=== PATIENT | male | born 1995 | race African-American/Black ===

== ENCOUNTER 2018-12-14 22:33 | Emergency (ER) | payer SELFPAY ==
[~2018-12-14] VITALS: Ht 177.8 cm; Wt 90.7 kg
--- NOTE | 2018-12-14 22:38 | ED.ADGEN ---
Adult General Chief Complaint Chief Complaint "... I was playing foot ball last .. and another player came down hard on this lt ankle and foot.. It still swollen and painful.. it stanley like crazy..like if I ve been sleeping.. and get up out bed... 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 Left foot and ankle is obviously swollen. It is ecchymotic. Pain is localized more on the lateral malleolus and mid foot. Distal neurovascular intact. No upper leg tenderness. Patient denies other injury. Patient denies any health history of any significance. Patient recently from [place] where he went to [place] at [facility]. Patient is here on football scholarship with [employer] Review of Systems Review of Systems Constitutional: Denies fever or chills [] Eyes: Denies change in visual acuity, redness, or eye pain [] HENT: Denies nasal congestion or sore throat [] Respiratory: Denies cough or shortness of breath [] Cardiovascular: No additional information not addressed in HPI [] GI: Denies abdominal pain, nausea, vomiting, bloody stools or diarrhea [] : Denies dysuria or hematuria [] Musculoskeletal: Complains of left foot and ankle pain and edema Integument: Denies rash or skin lesions [] Neurologic: Denies headache, focal weakness or sensory changes [] Endocrine: Denies polyuria or polydipsia [] All other systems were reviewed and found to be within normal limits, except as documented in this note. Family History Family History Noncontributory Current Medications Current Medications See nursing for home meds Allergies Allergies Allergies Coded Allergies Type Severity Reaction Last Updated Verified No Known Drug Allergies 12/14/18 No Physical Exam Physical Exam Constitutional: Well developed, well nourished, moderately acute distress, non- toxic appearance. [] HENT: Normocephalic, atraumatic, bilateral external ears normal, oropharynx moist, no oral exudates, nose normal. [] Eyes: PERRLA, EOMI, conjunctiva normal, no discharge. [] Glasses Neck: Normal range of motion, no tenderness, supple, no stridor. [] Cardiovascular:Heart rate regular rhythm, no murmur [] Lungs & Thorax: Bilateral breath sounds clear to auscultation [] Abdomen: Bowel sounds normal, soft, no tenderness, no masses, no pulsatile masses. [] Skin: Warm, dry, no erythema, no rash. [] Back: No tenderness, no CVA tenderness. [] Extremities: No tenderness, no cyanosis, no clubbing, ROM intact, no edema. [] Except findings in left ankle and foot Neurologic: Alert and oriented X 3, normal motor function, normal sensory function, no focal deficits noted. [] Psychologic: Affect anxious, judgement normal, mood normal. [] Current Patient Data Vital Signs Vital Signs Date Time Temp Pulse Resp B/P (MAP) Pulse Ox O2 Delivery O2 Flow Rate FiO2 12/15/18 00:35 64 20 148/84 (105) 98 Room Air 12/14/18 22:48 97.6 EKG EKG [] Radiology/Procedures Radiology/Procedures [][address] [address] IMAGING REPORT Signed PATIENT: DAVID LYNN ACCOUNT: [id number] : 1995 LOCATION: ER AGE: 23 SEX: M EXAM STATUS: REG ER ORD. PHYSICIAN: BINDU CORDERO MD REASON: Left ankle and foot football injury x1 week ago. PROCEDURE: FOOT LEFT 3V EXAM: AP, oblique and lateral views left foot AP, oblique and lateral views left ankle DATE: 12/14/2018 10:54 PM INDICATION: Left ankle and foot injury one week ago with pain COMPARISON: No Prior FINDINGS: Well-corticated ossicle posterior to the talus may represent os trigonum given the cortication. However posterior talar avulsion fracture are not excluded. Fat infiltration is seen within indicators fat pad. Achilles tendon silhouette is grossly preserved. Ankle mortise and talar dome are intact. Diffuse soft tissue swelling is seen about the left foot and ankle. Hallux valgus. Bipartite medial hallux MTP sesamoid. No tarsometatarsal offset. IMPRESSION: Well-corticated ossicle posterior to the talus may represent os trigonum or posterior talar process avulsion fracture. Mild fat infiltration is seen within indicators fat pad. Diffuse soft tissue swelling about the left foot and ankle. Hallux valgus Electronically signed by: Bennett Campa MD (12/14/2018 11:18 PM) [facility] [id number] DICTATED AND SIGNED BY: BENNETT CAMPA MD DATE: 12/14/182317 CC: BINDU CORDERO MD; PCP,NO ~ IMAGING REPORT Signed PATIENT: DAVID LYNN ACCOUNT: [id number] : 1995 LOCATION: ER AGE: 23 SEX: M EXAM STATUS: REG ER ORD. PHYSICIAN: BINDU CORDERO MD REASON: Left ankle and foot football injury x1 week ago. PROCEDURE: ANKLE LEFT 3V EXAM: AP, oblique and lateral views left foot AP, oblique and lateral views left ankle DATE: 12/14/2018 10:54 PM INDICATION: Left ankle and foot injury one week ago with pain COMPARISON: No Prior FINDINGS: Well-corticated ossicle posterior to the talus may represent os trigonum given the cortication. However posterior talar avulsion fracture are not excluded. Fat infiltration is seen within indicators fat pad. Achilles tendon silhouette is grossly preserved. Ankle mortise and talar dome are intact. Diffuse soft tissue swelling is seen about the left foot and ankle. Hallux valgus. Bipartite medial hallux MTP sesamoid. No tarsometatarsal offset. IMPRESSION: Well-corticated ossicle posterior to the talus may represent os trigonum or posterior talar process avulsion fracture. Mild fat infiltration is seen within indicators fat pad. Diffuse soft tissue swelling about the left foot and ankle. Hallux valgus Electronically signed by: Bennett Campa MD (12/14/2018 11:18 PM) [facility] [id number] DICTATED AND SIGNED BY: BENNETT CAMPA MD DATE: 12/14/182317 CC: BINDU CORDERO MD; PCP,NO ~ Course & Med Decision Making Course & Med Decision Making Pertinent Labs and Imaging studies reviewed. (See chart for details) Distal neurovascular intact post splint. Patient use crutches and where splint. Patient keep ankle and foot elevated. Patient take Tylenol and ibuprofen for pain. Patient follow-up primary care. Patient follow-up orthopedics. Patient return if any concerns. [] Final Impression Final Impression 1. Left ankle and foot sprain strain[] 2. Evulsion fracture talus left foot Dragon Disclaimer Dragon Disclaimer This electronic medical record was generated, in whole or in part, using a voice recognition dictation system. 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 Appears to have avulsion fx. talus. Discharge Information Condition at Discharge: Stable Disposition/Orders: D/C to Home Dischare Medications Active Scripts Active Reported No Known Medications Prior To Admisstion (Info) Each 1 Each MC PRN PRN Gale Disclaimer This chart was dictated in whole or in part using Voice Recognition software in a busy, high-work load, and often noisy Emergency Department environment. It may contain unintended and wholly unrecognized errors or omissions. BINDU CORDERO MD Dec 14, 2018 22:38
--- NOTE | 2018-12-14 23:21 | RAD ---
EXAM: AP, oblique and lateral views left foot AP, oblique and lateral views left ankle DATE: 12/14/2018 10:54 PM INDICATION: Left ankle and foot injury one week ago with pain COMPARISON: No Prior FINDINGS: Well-corticated ossicle posterior to the talus may represent os trigonum given the cortication. However posterior talar avulsion fracture are not excluded. Fat infiltration is seen within indicators fat pad. Achilles tendon silhouette is grossly preserved. Ankle mortise and talar dome are intact. Diffuse soft tissue swelling is seen about the left foot and ankle. Hallux valgus. Bipartite medial hallux MTP sesamoid. No tarsometatarsal offset. IMPRESSION: Well-corticated ossicle posterior to the talus may represent os trigonum or posterior talar process avulsion fracture. Mild fat infiltration is seen within indicators fat pad. Diffuse soft tissue swelling about the left foot and ankle. Hallux valgus Electronically signed by: Bennett Santos MD (12/14/2018 11:18 PM) [id number]
[2018-12-15 00:35] VITALS: BP 148/84
== END 2018-12-15 00:40 | disposition home or self-care (01) ==
LOC: ER 22:33
DX: S92.102A Unspecified fracture of left talus, initial encounter for closed fracture (principal); S93.402A Sprain of unspecified ligament of left ankle, initial encounter; W51.XXXA Accidental striking against or bumped into by another person, initial encounter; Y93.61 Activity, american tackle football; Y92.89 Other specified places as the place of occurrence of the external cause; Y99.8 Other external cause status
CPT/HCPCS: 29515; 73610; 73630; 99284